=== PATIENT | female | born 1945 | race Caucasian/White ===

== ENCOUNTER → 2018-01-12 | Outpatient (CLI) | payer MEDICARE, OTHER ==
[~2018-01-12] MED LIST: ALBU8.5H IH; AZIT-1 PO; CHOL100052 PO; CHOL200051 PO; DOXY-181 PO; GLUC100026 PO; MULT1CAP59 PO; NAPR220C12 PO; PSYL3.4P2 PO; VALA500T63 PO; [UNRECOGNIZED DRUG - CODE] PO; [UNRECOGNIZED DRUG - CODE] PO; [UNRECOGNIZED DRUG - CODE] PO
--- NOTE | 2018-01-12 13:49 | RADIOLOGY IMAGING REPORT ---
FACILITY: [facility] PATIENT NAME: SIMÓN BUSH : [id number] MR: [id number] V: [id number] EXAM DATE: ORDERING PHYSICIAN: LESLEE MALLOY TECHNOLOGIST: Cindy Lemos PROCEDURE:BILATERAL DIGITAL SCREENING MAMMOGRAM WITH CAD ASSISTED INTERPRETATION & 3D TOMOSYNTHESIS COMPARISON:Prior mammograms 01/07/17, 12/12/15, 08/09/14, 01/06/13, 12/23/11. INDICATIONS:SCREENING FINDINGS: A small to moderate amount of fibroglandular tissue is seen throughout the breasts. The parenchymal pattern has remained stable allowing for difference in mammographic technique & patient positioning. There is no evidence of malignant appearing mass, malignant appearing calcifications or other secondary sign of malignancy in either breast. DIAGNOSTIC CATEGORY 1--NEGATIVE. RECOMMENDATIONS: ROUTINE MAMMOGRAM AND CLINICAL EVALUATION. IMPRESSION: BIRADS 1: Negative No significant abnormality is seen. Dictated by: Jesica Grider M.D. on 01/12/2018 at 12:56 Transcribed by: RENA on 01/12/2018 at 13:46 Approved by: Jesica Grider M.D. on 01/12/2018 at 13:48 [facility]
== END ==
LOC: MAMO 00:51
PROVIDERS: ATTEND Internal Medicine
DX: Z12.31 Encounter for screening mammogram for malignant neoplasm of breast (principal)
CPT/HCPCS: 77063; 77067

== ENCOUNTER → 2019-02-15 | Outpatient (CLI) | payer MEDICARE, OTHER ==
--- NOTE | 2019-02-16 09:49 | RADIOLOGY IMAGING REPORT ---
[place] [facility] [place]IENT NAME: SIMÓN BUSH : [id number] MR: [id number] V: [id number] EXAM DATE: ORDERING PHYSICIAN: LESLEE MALLOY TECHNOLOGIST: Cindy Lemos PROCEDURE: BILATERAL DIGITAL SCREENING MAMMOGRAM WITH CAD ASSISTED INTERPRETATION & 3D TOMOSYNTHESIS. REASON FOR STUDY: Screening. FAMILY HISTORY OF BREAST CANCER: None, family history of ovarian cancer niece. BREAST PROCEDURES/TREATMENTS: None. COMPARISON: 01/12/18, 01/07/17, 12/12/15, 08/09/14, 01/06/13. VIEWS OBTAINED: 2D & 3D full field CC & MLO. BREAST DENSITY: There are scattered areas of fibroglandular density throughout the breasts. MAMMOGRAM FINDINGS: The parenchymal pattern has remained stable allowing for difference in mammographic technique & patient positioning. IMPRESSION: BIRADS 1: Negative. DIAGNOSTIC CATEGORY 1--NEGATIVE. RECOMMENDATIONS: ROUTINE MAMMOGRAM AND CLINICAL EVALUATION. Dictated by: Jesica Grider M.D. on 02/15/2019 at 16:18 Transcribed by: RENA on 02/16/2019 at 8:22 Approved by: Jesica Grider M.D. on 02/16/2019 at 9:48 [facility]
== END ==
LOC: MAMO 00:37
PROVIDERS: ATTEND Internal Medicine
DX: Z12.31 Encounter for screening mammogram for malignant neoplasm of breast (principal)
CPT/HCPCS: 77063; 77067